=== PATIENT | female | born 1965 | race Caucasian/White ===

== ENCOUNTER 2016-09-24 23:11 | Inpatient (IN) | payer BC, MEDICARE ==
[~2016-09-24] VITALS: Ht 175.3 cm; Wt 78.0 kg
[~2016-09-24 23:11] MED LIST: TEMA15CA; TRAZ-144
[2016-09-24] MEDS ORDERED: ONDANSETRON HCL/PF 4 MG/2 ML VIAL ONE (23:54)
[2016-09-25] MEDS ORDERED: HYDROMORPHONE 1 MG/1 ML DISP.SYRIN ONE ×2 (00:03→02:50)
[2016-09-25 00:11] LABS: BASOPHILS # (AUTO) 0.1 /CMM (0.0-0.2); BASOPHILS % (AUTO) 0.3 % (0.0-2.0); DIFF TOTAL % 100 %; EOSINOPHILS % (AUTO) 0.2 % (0.0-6.0); HEMATOCRIT 45 % (33-45); HEMOGLOBIN 14.9 g/dL (11.5-14.8); LYMPHOCYTES # (AUTO) 4.3 /CMM (0.8-4.8); LYMPHOCYTES % (AUTO) 22.8 % (20.0-44.0); MEAN CORPUSCULAR HEMOGLOBIN 29 PG (26.0-33.0); MEAN CORPUSCULAR HGB CONC 33 g/dl (31.0-36.0); MEAN CORPUSCULAR VOLUME 90 fL (82-100); MONOCYTES # (AUTO) 0.8 /CMM (0.1-1.30); MONOCYTES % (AUTO) 4.4 % (2.0-12.0); NEUTROPHILS # (AUTO) 13.5 /CMM (1.8-8.9); NEUTROPHILS % (AUTO) 72.3 % (43.0-81.0); PLATELET COUNT (AUTO) 196 /CMM (150-450); RED BLOOD CELL COUNT(AUTO) 5.06 MIL/uL (4.0-5.2); WHITE BLOOD COUNT (AUTO) 18.7 K/uL (4.3-11.0)
[2016-09-25 00:19] LABS: ADD UA MICROSCOPIC NO; KETONES,URINE NEGATIVE (NEGATIVE); LEUKOCYTE ESTERASE ,URINE NEGATIVE (NEGATIVE)
[2016-09-25 00:22] LABS: CALCIUM, SERUM 8.8 mg/dL (8.5-10.1); CREATININE 0.8 mg/dL (0.6-1.3); POTASSIUM 3.2 mmol/L (3.5-5.1)
[2016-09-25] MEDS ORDERED: HYDROMORPHONE 1 MG/1 ML DISP.SYRIN IV ONE ×2 (00:30→03:00)
[2016-09-25 00:35] LABS: ALBUMIN 4.3 g/dL (3.4-5.0); BILIRUBIN,DIRECT 0.1 mg/dL (0.0-0.2); BILIRUBIN,TOTAL 0.5 mg/dL (0.2-1.0); INDIRECT BILIRUBIN 0.4 mg/dL (0.0-1.1); TOTAL PROTEIN, SERUM 7.5 g/dL (6.4-8.2)
[2016-09-25] MEDS ORDERED: ONDANSETRON HCL/PF - ER 4 MG/2 ML VIAL IV ONE (03:30)
[2016-09-25] MEDS ORDERED: IV NS 0.9% 1,000 ML IV PRN (03:39)
[2016-09-25] MEDS ORDERED: IV SET PRIMARY 1 EA INFUS.SET MC ONE (03:42)
[2016-09-25] MEDS ORDERED: CEFTRIAXONE 1GM BAG (ER ONLY) 50 ML IV ONE (03:42)
[2016-09-25] MEDS ORDERED: METRONIDAZOLE 500MG/ NS 100ML 100 ML IV ONE ×2 (03:42→04:00)
[2016-09-25] MEDS ORDERED: IV SET PRIMARY PUMP SET 1 EA INFUS.SET MC ONE (03:43)
[2016-09-25] MEDS ORDERED: IV NS 0.9% 1,000 ML ONE (03:43)
[2016-09-25] MEDS ORDERED: Z GUARD REMEDY 2 OZ OINT TP PRN ×2 (04:00→04:30)
[2016-09-25] MEDS ORDERED: HYDROCODONE/APAP 5/325MG 1 EACH TABLET PO PRN ×2 (04:00→04:30)
[2016-09-25] MEDS ORDERED: ZOLPIDEM TARTRATE 5 MG TABLET PO PRN ×2 (04:00→04:30)
[2016-09-25] MEDS ORDERED: IV NS 0.9% 1,000 ML BAG IV ONE (04:00)
[2016-09-25] MEDS ORDERED: MAG HYDROX/AL HYDROX/SIMETH 30 ML UDC PO PRN (04:00)
[2016-09-25] MEDS ORDERED: MAGNESIUM HYDROXIDE 30 ML UDC PO PRN ×2 (04:00→04:30)
[2016-09-25] MEDS ORDERED: ACETAMINOPHEN 325 MG TABLET PO PRN (04:00)
[2016-09-25] MEDS ORDERED: MORPHINE SULFATE INJ 2 MG/ML DISP.SYRIN IV PRN (04:00)
[2016-09-25] MEDS ORDERED: ONDANSETRON HCL/PF 4 MG/2 ML VIAL IVP PRN (04:00)
[2016-09-25] MEDS ORDERED: CEFTRIAXONE 1 G in IV D5W 50 ML IV ONE (04:00)
[2016-09-25 04:40] VITALS: BP 150/81
[2016-09-25] MEDS: MORPHINE SULFATE INJ 2 MG/ML DISP.SYRIN IV PRN ×2 (04:57→06:00)
[2016-09-25] MEDS ORDERED: SECONDARY IV SET 1 EA INFUS.SET MC ONE (06:24)
[2016-09-25] MEDS ORDERED: POTASSIUM CHLORIDE 20 MEQ TAB.PRT.SR PO ONE ×2 (06:30)
[2016-09-25 06:41] VITALS: BP 150/81
[2016-09-25] MEDS ORDERED: LEVOFLOXACIN 500 MG /D5W 100ML 500 MG in PREMIX 1 EA IV SCH ×4 (07:00)
[2016-09-25] MEDS ORDERED: PANTOPRAZOLE 40 MG TABLET.DR PO SCH (07:30)
[2016-09-25 08:09] VITALS: BP 132/75
[2016-09-25] MEDS: ONDANSETRON HCL/PF 4 MG/2 ML VIAL IVP PRN ×2 (08:48→16:53)
[2016-09-25] MEDS: HYDROMORPHONE 1 MG/1 ML DISP.SYRIN IV PRN ×4 (08:48→20:03)
[2016-09-25] MEDS: PANTOPRAZOLE 40 MG TABLET.DR PO SCH (08:48)
[2016-09-25] MEDS: LEVOFLOXACIN 500 MG /D5W 100ML 500 MG in PREMIX 1 EA IV SCH (09:00)
[2016-09-25] MEDS: IV NS 0.9% 1,000 ML IV PRN (12:39)
[2016-09-25 13:20] LABS: BASOPHILS % (AUTO) 0.2 % (0.0-2.0); DIFF TOTAL % 100 %; HEMATOCRIT 45 % (33-45); LYMPHOCYTES # (AUTO) 2.8 /CMM (0.8-4.8); LYMPHOCYTES % (AUTO) 11.7 % (20.0-44.0); MEAN CORPUSCULAR HEMOGLOBIN 30 PG (26.0-33.0); MEAN CORPUSCULAR HGB CONC 33 g/dl (31.0-36.0); MEAN CORPUSCULAR VOLUME 89 fL (82-100); MONOCYTES # (AUTO) 1.3 /CMM (0.1-1.30); MONOCYTES % (AUTO) 5.3 % (2.0-12.0); NEUTROPHILS % (AUTO) 82.8 % (43.0-81.0); PLATELET COUNT (AUTO) 176 /CMM (150-450); RED BLOOD CELL COUNT(AUTO) 5.11 MIL/uL (4.0-5.2); WHITE BLOOD COUNT (AUTO) 24.2 K/uL (4.3-11.0)
[2016-09-25 15:07] LABS: BAND % (MANUAL) 4 % (0.0-5.0); LYMPHOCYTES % (MANUAL) 6 % (16-48)
[2016-09-25 15:08] LABS: ANISOCYTOSIS 1+; PLATELET ESTIMATE ADEQU
[2016-09-25] MEDS ORDERED: MINERAL OIL 133 ML (PYXIS) 1 EA ENEMA RC ONE (15:30)
[2016-09-25] MEDS ORDERED: NA PHOS,M-B/NA PHOS,DI-BA 1 EA ENEMA RC PRN (15:30)
[2016-09-25 16:06] VITALS: BP 130/71
[2016-09-25 19:00] VITALS: BP 124/62
[2016-09-25 20:00] VITALS: BP 124/62
[2016-09-25] MEDS: TEMAZEPAM 15 MG CAPSULE PO SCH (21:39)
[2016-09-25] MEDS ORDERED: TEMAZEPAM 15 MG CAPSULE PO SCH (22:00)
[2016-09-26] MEDS: HYDROMORPHONE 1 MG/1 ML DISP.SYRIN IV PRN ×5 (01:05→21:16)
[2016-09-26] MEDS: ONDANSETRON HCL/PF 4 MG/2 ML VIAL IVP PRN ×3 (01:09→21:19)
[2016-09-26] MEDS: PANTOPRAZOLE 40 MG TABLET.DR PO SCH (06:51)
[2016-09-26 08:00] VITALS: BP 116/73
[2016-09-26] MEDS: LEVOFLOXACIN 500 MG /D5W 100ML 500 MG in PREMIX 1 EA IV SCH (08:04)
[2016-09-26] MEDS ORDERED: SECONDARY IV SET 1 EA INFUS.SET MC ONE ×2 (08:04→17:04)
[2016-09-26 11:07] LABS: BASOPHILS # (AUTO) 0.1 /CMM (0.0-0.2); BASOPHILS % (AUTO) 0.3 % (0.0-2.0); DIFF TOTAL % 100 %; HEMATOCRIT 40 % (33-45); HEMOGLOBIN 13.5 g/dL (11.5-14.8); LYMPHOCYTES # (AUTO) 4.8 /CMM (0.8-4.8); LYMPHOCYTES % (AUTO) 20.5 % (20.0-44.0); MEAN CORPUSCULAR HEMOGLOBIN 30 PG (26.0-33.0); MEAN CORPUSCULAR HGB CONC 34 g/dl (31.0-36.0); MEAN CORPUSCULAR VOLUME 89 fL (82-100); MONOCYTES # (AUTO) 0.5 /CMM (0.1-1.30); MONOCYTES % (AUTO) 1.9 % (2.0-12.0); NEUTROPHILS # (AUTO) 18.2 /CMM (1.8-8.9); NEUTROPHILS % (AUTO) 77.3 % (43.0-81.0); PLATELET COUNT (AUTO) 161 /CMM (150-450); RED BLOOD CELL COUNT(AUTO) 4.55 MIL/uL (4.0-5.2); WHITE BLOOD COUNT (AUTO) 23.5 K/uL (4.3-11.0)
[2016-09-26 11:15] LABS: CALCIUM, SERUM 7.8 mg/dL (8.5-10.1); CREATININE 0.8 mg/dL (0.6-1.3); POTASSIUM 3.5 mmol/L (3.5-5.1)
[2016-09-26 11:58] LABS: BAND % (MANUAL) 2 % (0.0-5.0); LYMPHOCYTES % (MANUAL) 19 % (16-48)
[2016-09-26 11:59] LABS: PLATELET ESTIMATE ADEQUATE
[2016-09-26] MEDS: IV NS 0.9% 1,000 ML IV PRN ×2 (13:24→22:37)
[2016-09-26] MEDS ORDERED: KETOROLAC TROMETHAMINE INJ 30 MG/ML VIAL IV SCH (15:30)
[2016-09-26] MEDS: Magnesium 1GM/D5W 100ML PREMIX 100 ML IV SCH ×2 (16:30→17:14)
[2016-09-26 20:00] VITALS: BP 125/74
[2016-09-26] MEDS ORDERED: MAGNESIUM CITRATE 296 ML BOTTLE PO PRN (21:00)
[2016-09-26] MEDS ORDERED: MINERAL OIL 133 ML (PYXIS) 1 EA ENEMA RC ONE (22:00)
[2016-09-26] MEDS: TEMAZEPAM 15 MG CAPSULE PO SCH (22:33)
[2016-09-27] MEDS: LACTULOSE 10 G/15 ML UDC (PYXIS) PO PRN ×2 (01:04→20:01)
[2016-09-27] MEDS: HYDROMORPHONE 1 MG/1 ML DISP.SYRIN IV PRN ×3 (01:04→09:52)
[2016-09-27] MEDS ORDERED: MINERAL OIL 133 ML (PYXIS) 1 EA ENEMA RC ONE (02:45)
[2016-09-27 07:22] LABS: THYROID STIMULATING HORMONE 1.121 uIU/mL (0.358-3.74)
[2016-09-27] MEDS: PANTOPRAZOLE 40 MG TABLET.DR PO SCH ×2 (07:30→13:19)
[2016-09-27 07:49] LABS: BASOPHILS % (AUTO) 0.3 % (0.0-2.0); DIFF TOTAL % 100 %; EOSINOPHILS % (AUTO) 0.1 % (0.0-6.0); HEMATOCRIT 36 % (33-45); HEMOGLOBIN 11.9 g/dL (11.5-14.8); LYMPHOCYTES # (AUTO) 3.9 /CMM (0.8-4.8); LYMPHOCYTES % (AUTO) 20.5 % (20.0-44.0); MEAN CORPUSCULAR HEMOGLOBIN 30 PG (26.0-33.0); MEAN CORPUSCULAR HGB CONC 33 g/dl (31.0-36.0); MEAN CORPUSCULAR VOLUME 90 fL (82-100); MONOCYTES # (AUTO) 1.1 /CMM (0.1-1.30); NEUTROPHILS # (AUTO) 13.9 /CMM (1.8-8.9); NEUTROPHILS % (AUTO) 73.1 % (43.0-81.0); PLATELET COUNT (AUTO) 136 /CMM (150-450); RED BLOOD CELL COUNT(AUTO) 3.95 MIL/uL (4.0-5.2)
[2016-09-27 08:00] VITALS: BP 117/70
[2016-09-27 08:07] LABS: CALCIUM, SERUM 7.3 mg/dL (8.5-10.1); CREATININE 0.7 mg/dL (0.6-1.3)
[2016-09-27] MEDS: LEVOFLOXACIN 500 MG /D5W 100ML 500 MG in PREMIX 1 EA IV SCH (08:13)
[2016-09-27 08:26] LABS: POTASSIUM 2.7 mmol/L (3.5-5.1)
[2016-09-27] MEDS: SORBITOL SOLUTION 30 ML PO SCH ×2 (09:00→18:25)
[2016-09-27] MEDS ORDERED: IV SET PRIMARY PUMP SET 1 EA INFUS.SET MC ONE (09:57)
[2016-09-27] MEDS: POTASSIUM CL. PREMIX PERIPHER. 50 ML IV SCH ×4 (10:01→14:19)
[2016-09-27] MEDS: IV NS 0.9% 1,000 ML IV PRN (12:18)
[2016-09-27] MEDS ORDERED: SECONDARY IV SET 1 EA INFUS.SET MC ONE ×2 (13:16→19:18)
[2016-09-27] MEDS: PIPERACILLIN /TAZOBACTAM 3.375 G in IV D5W 50 ML IV SCH ×3 (13:19→23:42)
[2016-09-27] MEDS: MAG HYDROX/AL HYDROX/SIMETH 30 ML UDC PO PRN (14:19)
[2016-09-27] MEDS: METRONIDAZOLE 250 MG TABLET PO SCH ×3 (14:19→23:41)
[2016-09-27 15:15] LABS: HIV-1 p24 ANTIGEN NON REACTIVE (NONREACTIVE); HIV-1/2 ANTIBODY NON REACTIVE (NONREACTIVE)
[2016-09-27 16:00] VITALS: BP 114/65
[2016-09-27] MEDS: Magnesium 1GM/D5W 100ML PREMIX 100 ML IV SCH ×2 (16:50→17:59)
[2016-09-27] MEDS: HYDROMORPHONE MDV 1 MG in IV D5W 50 ML IV PRN (19:31)
[2016-09-27 20:00] VITALS: BP 122/67
[2016-09-27] MEDS: ACETAMINOPHEN 325 MG TABLET PO PRN (20:13)
[2016-09-27] MEDS: SIMETHICONE 80 MG TAB.CHEW PO PRN (20:29)
[2016-09-27 20:30] VITALS: BP 122/67
[2016-09-27] MEDS: TEMAZEPAM 15 MG CAPSULE PO SCH (21:38)
[2016-09-28] MEDS: SIMETHICONE 80 MG TAB.CHEW PO PRN ×2 (00:37→08:32)
[2016-09-28] MEDS: ACETAMINOPHEN 325 MG TABLET PO PRN (02:29)
[2016-09-28] MEDS: PIPERACILLIN /TAZOBACTAM 3.375 G in IV D5W 50 ML IV SCH ×3 (05:08→18:27)
[2016-09-28] MEDS: HYDROMORPHONE MDV 1 MG in IV D5W 50 ML IV PRN ×3 (05:08→21:40)
[2016-09-28] MEDS ORDERED: IV SET PRIMARY PUMP SET 1 EA INFUS.SET MC ONE (05:21)
[2016-09-28] MEDS: IV NS 0.9% 1,000 ML IV PRN ×2 (05:25→21:01)
[2016-09-28] MEDS: METRONIDAZOLE 250 MG TABLET PO SCH ×3 (06:14→18:27)
[2016-09-28 07:43] LABS: CALCIUM, SERUM 7.5 mg/dL (8.5-10.1); CREATININE 0.7 mg/dL (0.6-1.3)
[2016-09-28 08:00] VITALS: BP 113/58
[2016-09-28] MEDS: SORBITOL SOLUTION 30 ML PO SCH (08:27)
[2016-09-28] MEDS: MAG HYDROX/AL HYDROX/SIMETH 30 ML UDC PO PRN (08:27)
[2016-09-28] MEDS: LACTULOSE 10 G/15 ML UDC (PYXIS) PO PRN (08:32)
[2016-09-28] MEDS: ONDANSETRON HCL/PF 4 MG/2 ML VIAL IVP PRN (09:56)
[2016-09-28] MEDS: POTASSIUM CHLORIDE 20 MEQ TAB.PRT.SR PO SCH ×3 (09:59→12:46)
[2016-09-28] MEDS ORDERED: CT SWABBABLE VALVE TRANS SET 1 EA INFUS.SET MC ONE (11:39)
[2016-09-28] MEDS ORDERED: IOHEXOL-350 100 ML VIAL IV ONE (11:39)
[2016-09-28] MEDS ORDERED: IV NS 0.9% 250 ML IV ONE (11:39)
[2016-09-28 13:12] LABS: HEPATITIS C VIRUS AB <0.1 s/co ratio (0.0-0.9)
[2016-09-28] MEDS ORDERED: SECONDARY IV SET 1 EA INFUS.SET MC ONE ×2 (13:19→21:41)
[2016-09-28 16:00] VITALS: BP 108/75
[2016-09-28 16:25] VITALS: BP 108/75
[2016-09-28] MEDS ORDERED: Magnesium 1GM/D5W 100ML PREMIX 100 ML IV SCH (17:00)
[2016-09-28 20:00] VITALS: BP 126/71
[2016-09-28] MEDS: TEMAZEPAM 15 MG CAPSULE PO SCH (22:12)
[2016-09-29] MEDS: PIPERACILLIN /TAZOBACTAM 3.375 G in IV D5W 50 ML IV SCH ×4 (00:12→17:46)
[2016-09-29] MEDS: METRONIDAZOLE 250 MG TABLET PO SCH ×4 (00:13→17:13)
[2016-09-29] MEDS ORDERED: SET PCA INFUSE SET 1 EA INFUS.SET MC ONE (04:53)
[2016-09-29] MEDS: ONDANSETRON HCL/PF 4 MG/2 ML VIAL IVP PRN (05:09)
[2016-09-29] MEDS: IV NS 0.9% 1,000 ML IV PRN (05:17)
[2016-09-29] MEDS: HYDROMORPHONE MDV 1 MG in IV D5W 50 ML IV PRN (05:17)
[2016-09-29 07:24] LABS: BASOPHILS % (AUTO) 0.3 % (0.0-2.0); DIFF TOTAL % 100 %; EOSINOPHILS # (AUTO) 0.3 /CMM (0.0-0.7); EOSINOPHILS % (AUTO) 1.7 % (0.0-6.0); HEMATOCRIT 36 % (33-45); LYMPHOCYTES # (AUTO) 6.3 /CMM (0.8-4.8); LYMPHOCYTES % (AUTO) 38.3 % (20.0-44.0); MEAN CORPUSCULAR HEMOGLOBIN 30 PG (26.0-33.0); MEAN CORPUSCULAR HGB CONC 34 g/dl (31.0-36.0); MEAN CORPUSCULAR VOLUME 90 fL (82-100); MONOCYTES # (AUTO) 0.8 /CMM (0.1-1.30); MONOCYTES % (AUTO) 4.6 % (2.0-12.0); NEUTROPHILS # (AUTO) 9.1 /CMM (1.8-8.9); NEUTROPHILS % (AUTO) 55.1 % (43.0-81.0); PLATELET COUNT (AUTO) 216 /CMM (150-450); RED BLOOD CELL COUNT(AUTO) 3.99 MIL/uL (4.0-5.2); WHITE BLOOD COUNT (AUTO) 16.5 K/uL (4.3-11.0)
[2016-09-29 07:45] LABS: CALCIUM, SERUM 7.5 mg/dL (8.5-10.1); CREATININE 0.8 mg/dL (0.6-1.3)
[2016-09-29 07:52] LABS: POTASSIUM 2.5 mmol/L (3.5-5.1)
[2016-09-29 08:00] VITALS: BP 126/63
[2016-09-29] MEDS: SORBITOL SOLUTION 30 ML PO SCH (08:30)
[2016-09-29] MEDS: PANTOPRAZOLE 40 MG TABLET.DR PO SCH (08:30)
[2016-09-29] MEDS ORDERED: POTASSIUM CL. PREMIX PERIPHER. 50 ML IV SCH (10:30)
[2016-09-29] MEDS ORDERED: POTASSIUM CHLORIDE 10 MEQ/50 ML PREMIXED IVPB FOR PERIPHERAL LINE IV ONE (10:30)
[2016-09-29] MEDS ORDERED: POTASSIUM CHLORIDE 20 MEQ POWDER PACKET PO ONE (12:00)
[2016-09-29] MEDS ORDERED: POTASSIUM CHLORIDE 20 MEQ TAB.PRT.SR PO ONE (13:00)
[2016-09-29 16:00] VITALS: BP 121/69
[2016-09-29] MEDS: SIMETHICONE 80 MG TAB.CHEW PO PRN (17:17)
[2016-09-29 19:15] LABS: CALCIUM, SERUM 7.9 mg/dL (8.5-10.1); CREATININE 0.7 mg/dL (0.6-1.3); POTASSIUM 3.3 mmol/L (3.5-5.1)
[2016-09-29] MEDS: CIPROFLOXACIN HCL 250 MG TABLET PO SCH (20:43)
[2016-09-29 20:45] VITALS: BP 126/70
[2016-09-29] MEDS: TEMAZEPAM 15 MG CAPSULE PO SCH (20:46)
[2016-09-29 22:00] VITALS: BP 126/70
[2016-09-30] MEDS: METRONIDAZOLE 250 MG TABLET PO SCH ×2 (05:36)
[2016-09-30 07:54] VITALS: BP 114/74
[2016-09-30 08:00] VITALS: BP 114/74
[2016-09-30] MEDS: PANTOPRAZOLE 40 MG TABLET.DR PO SCH (08:38)
[2016-09-30] MEDS: CIPROFLOXACIN HCL 250 MG TABLET PO SCH (08:39)
[2016-09-30] MEDS: SORBITOL SOLUTION 30 ML PO SCH (08:40)
[2016-09-30 08:45] LABS: BASOPHILS % (AUTO) 0.3 % (0.0-2.0); DIFF TOTAL % 100 %; EOSINOPHILS # (AUTO) 0.2 /CMM (0.0-0.7); EOSINOPHILS % (AUTO) 1.1 % (0.0-6.0); HEMATOCRIT 37 % (33-45); HEMOGLOBIN 12.4 g/dL (11.5-14.8); LYMPHOCYTES # (AUTO) 4.8 /CMM (0.8-4.8); LYMPHOCYTES % (AUTO) 31.5 % (20.0-44.0); MEAN CORPUSCULAR HEMOGLOBIN 30 PG (26.0-33.0); MEAN CORPUSCULAR HGB CONC 34 g/dl (31.0-36.0); MEAN CORPUSCULAR VOLUME 88 fL (82-100); MONOCYTES # (AUTO) 0.4 /CMM (0.1-1.30); MONOCYTES % (AUTO) 2.7 % (2.0-12.0); NEUTROPHILS # (AUTO) 9.7 /CMM (1.8-8.9); NEUTROPHILS % (AUTO) 64.4 % (43.0-81.0); PLATELET COUNT (AUTO) 238 /CMM (150-450); RED BLOOD CELL COUNT(AUTO) 4.21 MIL/uL (4.0-5.2); WHITE BLOOD COUNT (AUTO) 15.1 K/uL (4.3-11.0)
[2016-09-30 09:03] LABS: CREATININE 0.7 mg/dL (0.6-1.3); POTASSIUM 3.1 mmol/L (3.5-5.1)
[2016-09-30] MEDS ORDERED: POTASSIUM CHLORIDE 20 MEQ TAB.PRT.SR PO ONE (09:30)
== END 2016-09-30 10:33 | disposition home or self-care (01) | DRG 393 ==
LOC: ER 23:13 → MEDSG2 09-25 04:30
PROVIDERS: ADMIT Internal Medicine; ATTEND Internal Medicine
PROC: 0DBM8ZX Excision of Descending Colon, Via Natural or Artificial Opening Endoscopic, Diagnostic (ICD-10-PCS; principal; 2016-09-25)
PROC: 0DBN8ZX Excision of Sigmoid Colon, Via Natural or Artificial Opening Endoscopic, Diagnostic (ICD-10-PCS; 2016-09-25)
PROC: 0DBP8ZX Excision of Rectum, Via Natural or Artificial Opening Endoscopic, Diagnostic (ICD-10-PCS; 2016-09-25)
PROC: 0DBL8ZX Excision of Transverse Colon, Via Natural or Artificial Opening Endoscopic, Diagnostic (ICD-10-PCS; 2016-09-25)
DX: K55.9 Vascular disorder of intestine, unspecified (principal); K85.90 Acute pancreatitis without necrosis or infection, unspecified; K62.5 Hemorrhage of anus and rectum; E87.6 Hypokalemia; E03.9 Hypothyroidism, unspecified; J45.909 Unspecified asthma, uncomplicated; K21.9 Gastro-esophageal reflux disease without esophagitis; K59.00 Constipation, unspecified; G43.919 Migraine, unspecified, intractable, without status migrainosus; R73.9 Hyperglycemia, unspecified; D72.828 Other elevated white blood cell count; R21 Rash and other nonspecific skin eruption; L29.9 Pruritus, unspecified; Z85.6 Personal history of leukemia; T40.2X5A Adverse effect of other opioids, initial encounter; K64.2 Third degree hemorrhoids; E83.42 Hypomagnesemia
CPT/HCPCS: 36415; 80048-TC; 80074; 80076-TC; 81000-TC; 83605-TC; 83690-TC; 83735-TC; 84439-TC; 84443-TC; 85025-TC; 87040-TC; 87081-TC; 87086-TC; 87536; 88304-TC; 88305-TC; A4216; A4606; A6403; J0696; J1170; J1956; J2270; J2405; J2543; J3475; J3480; J3490; J7030; J7050; J7060; Q9967; Z7610

== ENCOUNTER 2018-03-16 08:15 | Outpatient (CLI) | payer MEDICARE, OTHER ==
[~2018-03-16 08:15] MED LIST changes: -TRAZ-144; +TRAZ-182
== END 2018-03-16 23:59 | disposition home or self-care (01) ==
LOC: MSC 08:15
PROVIDERS: ATTEND Anesthesiology
DX: G43.709 Chronic migraine without aura, not intractable, without status migrainosus (principal); G44.89 Other headache syndrome; G43.109 Migraine with aura, not intractable, without status migrainosus; F34.1 Dysthymic disorder; Z79.899 Other long term (current) drug therapy

== ENCOUNTER 2019-12-24 11:00 | Outpatient (CLI) | payer MEDICARE, OTHER | END 2019-12-24 23:59 | disposition home or self-care (01) | LOC: MSC 11:00 | PROVIDERS: ATTEND Anesthesiology | DX: G43.709 Chronic migraine without aura, not intractable, without status migrainosus (principal); G43.109 Migraine with aura, not intractable, without status migrainosus; G44.89 Other headache syndrome; F34.1 Dysthymic disorder | CPT/HCPCS: J0585 ×2; 96372 ==